=== PATIENT | female | born 1980 | race Caucasian/White ===

== ENCOUNTER 2018-07-20 16:19 | Emergency (ER) | payer OTHER ==
[~2018-07-20] VITALS: Ht 167.6 cm; Wt 101.3 kg
[2018-07-20 16:22] VITALS: BP 137/84
[2018-07-20] MEDS ORDERED: NACL 0.9% 1,000 ML IV ONE (16:48)
[2018-07-20] MEDS ORDERED: NACL 0.9% 1,000 ML IV SCH (16:48)
[2018-07-20] MEDS ORDERED: MORPHINE SULFATE 2 MG/ML SYR IVP ONE (16:50)
[2018-07-20] MEDS ORDERED: ONDANSETRON 4 MG/2 ML VIAL IVP ONE (16:50)
[2018-07-20] MEDS ORDERED: KETOROLAC 30 MG/ML VIAL IVP ONE (16:50)
[2018-07-20 17:47] LABS: BASOPHILS % (AUTO) 0.3 % (0.0-2.0); EOSINOPHILS # (AUTO) 0.2 K/uL (0-0.4); EOSINOPHILS % (AUTO) 1.4 % (0.0-4.0); HEMATOCRIT 32.4 % (36-48); HEMOGLOBIN 10.2 g/dL (12.0-16.0); LYMPHOCYTES # (AUTO) 1.8 K/uL (2.5-16.5); MEAN CORPUSCULAR HEMOGLOBIN 24 pg (27-31); MEAN CORPUSCULAR HGB CONC 32 g/dL (33-37); MEAN CORPUSCULAR VOLUME 76.5 fL (80-94); MONOCYTES # (AUTO) 0.9 K/uL (0.8-1.0); MONOCYTES % (AUTO) 7.8 % (1.7-9.3); NEUTROPHILS % (AUTO) 75.5 % (42.2-75.2); PLATELET COUNT (AUTO) 284 K/uL (140-450); RED BLOOD CELL COUNT(AUTO) 4.24 MIL/uL (4.20-5.40); RED CELL DISTRIBUTION WIDTH 16.2 % (11.6-13.7); WHITE BLOOD COUNT (AUTO) 11.9 K/uL (4.8-10.8)
[2018-07-20 17:47] LABS: APPEARANCE,URINE CLEAR (CLEAR); BILIRUBIN,URINE 1+ (NEGATIVE); BLOOD, URINE 2+ (NEGATIVE); COLOR,URINE ORANGE (YELLOW); LEUKOCYTE ESTERASE ,URINE NEGATIVE (NEGATIVE); NITRITE, URINE NEGATIVE (NEGATIVE); PH,URINE 5.5 (5.0-9.0); UGLUCOSE NEGATIVE (NEGATIVE)
[2018-07-20 17:55] LABS: RBC,URINE 3-10 (FEW) /HPF (0-5); WBC,URINE 0-5 (RARE) /HPF (0-5)
[2018-07-20 18:00] LABS: CARBON DIOXIDE 26.3 mmol/L (21-32); CREATININE 0.7 mg/dL (0.6-1.3); POTASSIUM 3.3 mmol/L (3.5-5.1)
[2018-07-20 18:06] LABS: ALBUMIN 2.7 g/dL (3.4-5.0); TOTAL BILIRUBIN 0.6 mg/dL (0.0-1.0)
[2018-07-20] MEDS ORDERED: LEVOFLOXACIN 500 MG TAB PO ONE (18:30)
[2018-07-20] MEDS ORDERED: cefTRIAXone 1,000 MG VIAL ONE (18:40)
[2018-07-20 19:15] VITALS: BP 109/59
== END 2018-07-20 19:15 | disposition home or self-care (01) ==
LOC: MED 16:19
DX: R10.2 Pelvic and perineal pain (principal); R19.7 Diarrhea, unspecified; R11.0 Nausea; Z90.49 Acquired absence of other specified parts of digestive tract
CPT/HCPCS: 36415; 74176; 76705; 80053; 81001; 81025; 82150; 83690; 84703; 85025; 96361; 96365; 96375; 99285; J0696; J1885; J2270; J2405; J7030; J7060; Q0092

== ENCOUNTER 2018-12-04 11:22 | Emergency (ER) | payer OTHER ==
[~2018-12-04] VITALS: Ht 167.6 cm; Wt 90.7 kg
--- NOTE | 2018-12-04 11:24 | NUR ---
PATIENT AMBULATED TO BED 7 AT THIS TIME.
[2018-12-04 11:29] VITALS: BP 152/80
--- NOTE | 2018-12-04 11:30 | NUR ---
38/F BIB DTR WITH C/O CHEST PAIN, INTERMITTENT PAIN SINCE SATURDAY, TIGHTNESS/PRESSURE ON MID CHEST AREA.PMH:NONE.RX: NONE. DIARRHEAX1 EPISODE TODAY. DENIES N/V; SKIN IS PINK/WARM/DRY; AAOX4 WITH EVEN AND STEADY GAIT; LUNGS CLEAR BL; HR EVEN AND REGULAR; PT DENIES ANY FEVER, CP, SOB, OR COUGH AT THIS TIME; PATIENT STATES PAIN OF 6/10 AT THIS TIME. PATIENT POSITIONED FOR COMFORT; HOB ELEVATED; BEDRAILS UP X2; BED DOWN. ER MD MADE AWARE OF PT STATUS.
--- NOTE | 2018-12-04 11:32 | NUR ---
EKG PERFORMED AT BEDSIDE WITH FAMILY MEMBER PRESENT. PT COVERED IN GOWN DURING PROCEDURE
[2018-12-04 12:58] LABS: BASOPHILS % (AUTO) 0.4 % (0.0-2.0); EOSINOPHILS # (AUTO) 0.2 K/uL (0-0.4); EOSINOPHILS % (AUTO) 2.7 % (0.0-4.0); HEMATOCRIT 35.2 % (36-48); HEMOGLOBIN 10.9 g/dL (12.0-16.0); LYMPHOCYTES # (AUTO) 2.5 K/uL (2.5-16.5); LYMPHOCYTES % (AUTO) 31.7 % (20.5-51.1); MEAN CORPUSCULAR HEMOGLOBIN 22 pg (27-31); MEAN CORPUSCULAR HGB CONC 31 g/dL (33-37); MEAN CORPUSCULAR VOLUME 70.2 fL (80-94); MONOCYTES # (AUTO) 0.6 K/uL (0.8-1.0); MONOCYTES % (AUTO) 7.7 % (1.7-9.3); NEUTROPHILS # (AUTO) 4.5 K/uL (1.8-7.7); NEUTROPHILS % (AUTO) 57.5 % (42.2-75.2); PLATELET COUNT (AUTO) 277 K/uL (140-450); RED BLOOD CELL COUNT(AUTO) 5.01 MIL/uL (4.20-5.40); RED CELL DISTRIBUTION WIDTH 17.1 % (11.6-13.7); WHITE BLOOD COUNT (AUTO) 7.8 K/uL (4.8-10.8)
[2018-12-04 13:10] LABS: ALBUMIN 3.3 g/dL (3.4-5.0); ANION GAP 13.5 (8-16); CARBON DIOXIDE 28.3 mmol/L (21-32); CREATININE 0.8 mg/dL (0.6-1.3); POTASSIUM 3.8 mmol/L (3.5-5.1); TOTAL BILIRUBIN 0.3 mg/dL (0.0-1.0)
--- NOTE | 2018-12-04 13:21 | NUR ---
PT TAKEN TO CT VIA W/C, ACCOMPANIED BY [employer] SUPERVISOR.
--- NOTE | 2018-12-04 13:33 | NUR ---
pt returned from ct.
[2018-12-04 14:37] VITALS: BP 127/80
--- NOTE | 2018-12-04 14:37 | NUR ---
Patient discharged with v/s stable. Written and verbal after care instructions given and explained. Patient alert, oriented and verbalized understanding of instructions. Ambulatory with steady gait. All questions addressed prior to discharge. ID band removed. Patient advised to follow up with PMD. Rx of NORCO &ASPIRIN given. Patient educated on indication of medication including possible reaction and side effects. Opportunity to ask questions provided and answered.
== END 2018-12-04 14:37 | disposition home or self-care (01) ==
LOC: MED 11:22
DX: R07.1 Chest pain on breathing (principal)
CPT/HCPCS: 36415; 71275; 80053; 81025; 84484; 84702; 85025; 93005; 99284; Q9967

== ENCOUNTER 2021-08-13 10:42 | Emergency (ER) | payer OTHER ==
[~2021-08-13] VITALS: Ht 162.6 cm; Wt 104.8 kg
[2021-08-13 10:47] VITALS: BP 144/97
--- NOTE | 2021-08-13 10:55 | NUR ---
Patient ambulated to [facility]
[2021-08-13] MEDS ORDERED: DICYCLOMINE HCL LIQUID 20 MG, ALUMINUM HYD/MAG/SIMETHICONE 30 ML, LIDOCAINE VISCOUS 2% ... PO ONE ×3 (11:30)
[2021-08-13] MEDS ORDERED: FAMOTIDINE 20 MG TAB PO ONE (11:30)
[2021-08-13] MEDS ORDERED: DICYCLOMINE HCL LIQUID 10 MG/5 ML UDC ONE (11:39)
[2021-08-13] MEDS ORDERED: ALUMINUM HYD/MAG/SIMETHICONE 30 ML UDC ONE (11:39)
[2021-08-13 11:51] LABS: BASOPHILS # (AUTO) 0.1 K/uL (0.00-0.22); BASOPHILS % (AUTO) 0.9 % (0.0-2.0); EOSINOPHILS # (AUTO) 0.3 K/uL (0-0.4); EOSINOPHILS % (AUTO) 3.5 % (0.0-4.0); HEMATOCRIT 42.9 % (36-48); HEMOGLOBIN 14.2 g/dL (12.0-16.0); LYMPHOCYTES # (AUTO) 2.6 K/uL (2.5-16.5); LYMPHOCYTES % (AUTO) 27.6 % (20.5-51.1); MEAN CORPUSCULAR HEMOGLOBIN 28 pg (27-31); MEAN CORPUSCULAR HGB CONC 33 g/dL (33-37); MEAN CORPUSCULAR VOLUME 83.5 fL (80-94); MONOCYTES # (AUTO) 0.8 K/uL (0.8-1.0); MONOCYTES % (AUTO) 8.3 % (1.7-9.3); NEUTROPHILS # (AUTO) 5.6 K/uL (1.8-7.7); NEUTROPHILS % (AUTO) 59.7 % (42.2-75.2); PLATELET COUNT (AUTO) 331 K/uL (140-450); RED BLOOD CELL COUNT(AUTO) 5.14 MIL/uL (4.20-5.40); RED CELL DISTRIBUTION WIDTH 14.4 % (11.6-13.7); WHITE BLOOD COUNT (AUTO) 9.5 K/uL (4.8-10.8)
[2021-08-13 12:02] LABS: ALBUMIN 3.4 g/dL (3.4-5.0); ANION GAP 9.8 (8-16); CARBON DIOXIDE 30.2 mmol/L (21-32); CREATININE 0.6 mg/dL (0.6-1.3); TOTAL BILIRUBIN 0.4 mg/dL (0.0-1.0)
--- NOTE | 2021-08-13 12:12 | NUR ---
41 y/o F BIB self from home c/o epigastric pain x 1 day. Patient states 8/10, "painful/constant," radiating to low back. Denies nausea, vomiting, diarrhea, constipation, fever, chills, dysuria, urinary symptoms, chest pain, SOB. Denies any medications prior to arrival. Reports last gastritis flare up 1 year ago PMH: gastritis Meds: pantoprazole NKA Sx: cholecystectomy
[2021-08-13] MEDS ORDERED: FAMO-90 PO (13:31)
[2021-08-13 13:40] VITALS: BP 144/97
--- NOTE | 2021-08-13 13:40 | NUR ---
Patient discharged with v/s stable. Written and verbal after care instructions given and explained. Patient alert, oriented and verbalized understanding of instructions. Ambulatory with steady gait. All questions addressed prior to discharge. ID band removed. Patient advised to follow up with PMD. Rx of FAMOTIDINE (SENT) given. Patient educated on indication of medication including possible reaction and side effects. Opportunity to ask questions provided and answered.
== END 2021-08-13 13:40 | disposition home or self-care (01) ==
LOC: MED 10:42
DX: K29.70 Gastritis, unspecified, without bleeding (principal)
CPT/HCPCS: 36415; 80053; 81002; 81025; 83690; 85025; 99283

== ENCOUNTER 2021-10-28 11:10 | Emergency (ER) | payer OTHER, SELFPAY ==
[~2021-10-28] VITALS: Ht 167.6 cm; Wt 99.8 kg
[~2021-10-28 11:10] MED LIST: FAMO-90 PO
[2021-10-28 11:28] VITALS: BP 154/88
--- NOTE | 2021-10-28 11:39 | NUR ---
TENT 3
[2021-10-28] MEDS ORDERED: IBUP-2213 PO (12:45)
[2021-10-28] MEDS ORDERED: BENZ1LOZ98 PO (12:45)
[2021-10-28] MEDS ORDERED: TAM75 PO (12:45)
[2021-10-28] MEDS ORDERED: PROM118S5 PO (12:45)
--- NOTE | 2021-10-28 13:17 | NUR ---
NO NUSNG CARE GIVEN-Patient discharged with v/s stable. Written and verbal after care instructions given and explained. Patient alert, oriented and verbalized understanding of instructions. Ambulatory with steady gait. All questions addressed prior to discharge. ID band removed. Patient advised to follow up with PMD. Rx of CEPACOL SORE, PROMETHAZINE, TAMIFLU given. Patient educated on indication of medication including possible reaction and side effects. Opportunity to ask questions provided and answered.
== END 2021-10-28 13:19 | disposition home or self-care (01) ==
LOC: MED 11:10
DX: B34.9 Viral infection, unspecified (principal); Z20.822 Contact with and (suspected) exposure to COVID-19
CPT/HCPCS: 99283; U0003

== ENCOUNTER 2022-12-04 20:02 | Emergency (ER) | payer OTHER ==
[~2022-12-04] VITALS: Ht 167.6 cm; Wt 117.9 kg
[~2022-12-04 20:02] MED LIST changes: +BENZ-300 PO; +IBUP-2213 PO; +PROM118S5 PO; +TAM75 PO
[2022-12-04 20:10] VITALS: BP 161/89
--- NOTE | 2022-12-04 20:30 | NUR ---
DR. MAN AT BEDSIDE
--- NOTE | 2022-12-04 20:30 | NUR ---
PT COMPLAINING OF CP, DYSPNEA, AND NUMBNESS/SWELLING OF EXTREMETIES X 2 WEEKS CONSTANT. DYSPNEA WORSENS WHEN PT IS LAYING FLAT. PT ALSO ADMITS TO BEING MORE FATIGUE LAST 2 WEEKS. HAD LAB WORKS DONE RECENTLY AND PCP STATED PT HAD HIGH CHOLESTEROL. DENIES ANY OTHER PMH. DENIES RECENT STRESSFULL EVENTS. SPEECH CLEAR. GEODESIST EQUAL BILATERAL. FACIAL SYMETRY INTACT. AOX4. SKIN WDL. NAD NOTED AT THIS TIME. CONNECTED PT TO MONITOR. BED LOW IN LOCKED POSITION. SIDE RAILS UP.
--- NOTE | 2022-12-04 20:30 | NUR ---
PT TO BED 4
[2022-12-04] MEDS ORDERED: FAMOTIDINE 20 MG TAB PO ONE (20:35)
[2022-12-04] MEDS ORDERED: IBUPROFEN 600 MG TAB PO ONE (20:35)
[2022-12-04] MEDS ORDERED: ALUMINUM HYD/MAG/SIMETHICONE 30 ML UDC PO ONE (20:35)
--- NOTE | 2022-12-04 20:50 | NUR ---
XRAY AT BEDSIDE
[2022-12-04 20:52] LABS: BASOPHILS % (AUTO) 0.4 % (0.0-2.0); EOSINOPHILS # (AUTO) 0.2 K/uL (0-0.4); EOSINOPHILS % (AUTO) 1.5 % (0.0-4.0); HEMATOCRIT 33.3 % (36-48); HEMOGLOBIN 10.6 g/dL (12.0-16.0); LYMPHOCYTES # (AUTO) 3.3 K/uL (2.5-16.5); MEAN CORPUSCULAR HEMOGLOBIN 24 pg (27-31); MEAN CORPUSCULAR HGB CONC 32 g/dL (33-37); MEAN CORPUSCULAR VOLUME 76.2 fL (80-94); MONOCYTES # (AUTO) 0.9 K/uL (0.8-1.0); MONOCYTES % (AUTO) 8.7 % (1.7-9.3); NEUTROPHILS # (AUTO) 6.5 K/uL (1.8-7.7); NEUTROPHILS % (AUTO) 59.4 % (42.2-75.2); PLATELET COUNT (AUTO) 280 K/uL (140-450); RED BLOOD CELL COUNT(AUTO) 4.37 MIL/uL (4.20-5.40); WHITE BLOOD COUNT (AUTO) 10.9 K/uL (4.8-10.8)
--- NOTE | 2022-12-04 20:59 | NUR ---
PT MEDICATED FOR PAIN PER EMAR
[2022-12-04 21:07] LABS: ALBUMIN 3.1 g/dL (3.4-5.0); ANION GAP 10.6 (8-16); CREATININE 0.7 mg/dL (0.6-1.3); POTASSIUM 3.6 mmol/L (3.5-5.1); TOTAL BILIRUBIN 0.1 mg/dL (0.0-1.0)
[2022-12-04 21:11] LABS: LIPASE 74 U/L (73-393)
--- NOTE | 2022-12-04 21:18 | NUR ---
DR. MAN AT BEDSIDE
[2022-12-04] MEDS ORDERED: FAMO-90 PO (21:19)
[2022-12-04] MEDS ORDERED: ALUM355S59 PO (21:19)
[2022-12-04] MEDS ORDERED: ACET-10509 PO (21:19)
--- NOTE | 2022-12-04 21:26 | NUR ---
Patient discharged with v/s stable. Written and verbal after care instructions given and explained. Patient verbalized understanding. Ambulatory with steady gait. All questions addressed prior to discharge. Advised to follow up with PMD.
[2022-12-04 21:27] VITALS: BP 146/73
== END 2022-12-04 21:27 | disposition home or self-care (01) ==
LOC: MED 20:02
DX: R07.9 Chest pain, unspecified (principal); K21.9 Gastro-esophageal reflux disease without esophagitis
CPT/HCPCS: 36415; 71045; 80053; 83690; 83880; 84484; 85025; 99285; Q0092

== ENCOUNTER 2023-05-23 10:25 | Inpatient (IN) | payer OTHER ==
[~2023-05-23] VITALS: Ht 170.2 cm; Wt 121.6 kg
[~2023-05-23 10:25] MED LIST changes: +ACET-10509 PO; +ALUM355S59 PO
[2023-05-23 10:28] VITALS: PULSE 73; RESP 20; O2SAT 100
[2023-05-23 12:05] LABS: BASOPHILS # (AUTO) 0.1 K/uL (0.00-0.22); BASOPHILS % (AUTO) 0.7 % (0.0-2.0); EOSINOPHILS # (AUTO) 0.2 K/uL (0-0.4); EOSINOPHILS % (AUTO) 2.1 % (0.0-4.0); HEMOGLOBIN 12.2 g/dL (12.0-16.0); LYMPHOCYTES % (AUTO) 28.2 % (20.5-51.1); MEAN CORPUSCULAR HEMOGLOBIN 25 pg (27-31); MEAN CORPUSCULAR HGB CONC 32 g/dL (33-37); MEAN CORPUSCULAR VOLUME 76.5 fL (80-94); MONOCYTES # (AUTO) 0.7 K/uL (0.8-1.0); MONOCYTES % (AUTO) 6.5 % (1.7-9.3); NEUTROPHILS # (AUTO) 6.7 K/uL (1.8-7.7); NEUTROPHILS % (AUTO) 62.5 % (42.2-75.2); PLATELET COUNT (AUTO) 285 K/uL (140-450); RED BLOOD CELL COUNT(AUTO) 4.97 MIL/uL (4.20-5.40); RED CELL DISTRIBUTION WIDTH 20.6 % (11.6-13.7); WHITE BLOOD COUNT (AUTO) 10.7 K/uL (4.8-10.8)
[2023-05-23 12:19] LABS: ALBUMIN 3.3 g/dL (3.4-5.0); ANION GAP 12.7 (8-16); CARBON DIOXIDE 22.9 mmol/L (21-32); CREATININE 0.8 mg/dL (0.6-1.3); POTASSIUM 3.6 mmol/L (3.5-5.1); TOTAL BILIRUBIN 0.3 mg/dL (0.0-1.0); TOTAL PROTEIN, SERUM 7.4 g/dL (6.4-8.2)
[2023-05-23 13:50] LABS: APPEARANCE,URINE CLEAR (CLEAR); BILIRUBIN,URINE NEGATIVE (NEGATIVE); BLOOD, URINE NEGATIVE (NEGATIVE); COLOR,URINE YELLOW (YELLOW); LEUKOCYTE ESTERASE ,URINE NEGATIVE (NEGATIVE); NITRITE, URINE NEGATIVE (NEGATIVE); PH,URINE 5.5 (5.0-9.0); PROTEIN,URINE NEGATIVE (NEGATIVE); UGLUCOSE NEGATIVE (NEGATIVE); UROBILINOGEN,URINE 0.2 EU/dL (0.2 - 1)
[2023-05-23] MEDS ORDERED: ONDANSETRON 4 MG/2 ML VIAL IVP ONE (14:10)
[2023-05-23] MEDS ORDERED: NACL 0.9% 1,000 ML IV ONE (14:10)
[2023-05-23] MEDS ORDERED: MORPHINE SULFATE 4 MG/ML SYR IVP ONE (14:10)
[2023-05-23] MEDS ORDERED: PIPERACILLIN/TAZOBACTAM 3.375 GM in DEXTROSE 5% 50 ML IV ONE (15:00)
[2023-05-23] MEDS ORDERED: PIPERACILLIN/TAZOBACTAM 3.375 GM VIAL IV ONE (15:51)
[2023-05-23] MEDS ORDERED: POTASSIUM CHLORIDE 10 MEQ TABER PO PRN (15:55)
[2023-05-23] MEDS ORDERED: KCL 20 MEQ IN 100 mL PREMIX 200 ML IV PRN (15:55)
[2023-05-23] MEDS ORDERED: HYDROcodone/APAP 5/325 MG 1 TAB TAB PO PRN (15:55)
[2023-05-23] MEDS ORDERED: MAGNESIUM OXIDE 400 MG TAB PO PRN (15:55)
[2023-05-23] MEDS ORDERED: MAG SULF 2000 MG/WATER PREMIX 50 ML IV PRN (15:55)
[2023-05-23] MEDS ORDERED: ACETAMINOPHEN 325 MG TAB PO PRN (15:55)
[2023-05-23 16:55] VITALS: BP 112/54; PULSE 70; RESP 18; TEMP 96.2; O2SAT 97
[2023-05-23] MEDS: NACL 0.9% 1,000 ML IV SCH (17:18)
[2023-05-23 17:30] VITALS: PULSE 70; RESP 18; O2SAT 97
[2023-05-23] MEDS: MORPHINE SULFATE 2 MG/ML SYR IVP PRN (17:38)
[2023-05-23] MEDS ORDERED: BUPIVACAINE-MPF/EPI 0.25% 10 ML VIAL INJ ONE (18:43)
[2023-05-23] MEDS ORDERED: DESFLURANE 240 ML BTL INH ONE (19:39)
[2023-05-23] MEDS ORDERED: fentaNYL citrate 0.05 MG/ML VIAL ONE (19:51)
[2023-05-23] MEDS ORDERED: ROCURONIUM 50 MG/5 ML VIAL IV ONE (19:54)
[2023-05-23] MEDS ORDERED: SUCCINYLCHOLINE CHLORIDE 200 MG/10 ML VIAL IVP ONE (19:54)
[2023-05-23] MEDS ORDERED: KETOROLAC 30 MG/ML VIAL ONE (19:54)
[2023-05-23] MEDS ORDERED: PROPOFOL 200 MG/20 ML VIAL IV ONE (19:54)
[2023-05-23] MEDS ORDERED: ONDANSETRON 4 MG/2 ML VIAL ONE (19:55)
[2023-05-23] MEDS ORDERED: DEXAMETHASONE 4 MG/ML VIAL ONE (19:55)
[2023-05-23] MEDS: LIRAGLUTIDE 1.8 MG SUBQ SCH (20:00)
[2023-05-23] MEDS ORDERED: HYDROmorphone PFS 2 MG/ML SYR ONE ×2 (20:17→20:56)
[2023-05-23] MEDS ORDERED: SUGAMMADEX SODIUM 200 MG/2 ML VIAL IV ONE (20:34)
[2023-05-23] MEDS ORDERED: MORPHINE SULFATE 4 MG/ML SYR IV PRN (20:45)
[2023-05-23] MEDS ORDERED: MORPHINE SULFATE 2 MG/ML SYR IVP PRN (20:45)
[2023-05-23] MEDS: HYDROmorphone 1 MG/ML AMP IVP PRN ×4 (20:50→21:20)
[2023-05-23] MEDS ORDERED: ONDANSETRON 4 MG/2 ML VIAL IVP PRN (20:50)
[2023-05-23] MEDS ORDERED: metroNIDAZOLE 500 MG/NS PREMIX 100 ML IV SCH (21:00)
[2023-05-23 21:28] VITALS: PULSE 70; RESP 18; O2SAT 96
[2023-05-23] MEDS ORDERED: cefTRIAXone 1,000 MG VIAL ONE (22:34)
[2023-05-24] MEDS ORDERED: metroNIDAZOLE 500 MG/NS PREMIX 100 ML IV SCH
[2023-05-24] MEDS: metroNIDAZOLE 500 MG/NS PREMIX 100 ML IV SCH ×4 (00:04→23:05)
[2023-05-24] MEDS: NACL 0.9% 1,000 ML IV SCH ×3 (00:15→17:45)
[2023-05-24 00:55] VITALS: BP 102/52; PULSE 65; RESP 17; TEMP 97.4; O2SAT 96
[2023-05-24] MEDS: ONDANSETRON 4 MG/2 ML VIAL IVP PRN ×2 (03:23→08:45)
[2023-05-24] MEDS: MORPHINE SULFATE 2 MG/ML SYR IVP PRN (03:26)
[2023-05-24 06:31] LABS: BASOPHILS % (AUTO) 0.2 % (0.0-2.0); HEMATOCRIT 33.8 % (36-48); HEMOGLOBIN 10.7 g/dL (12.0-16.0); LYMPHOCYTES # (AUTO) 1.5 K/uL (2.5-16.5); MEAN CORPUSCULAR HEMOGLOBIN 25 pg (27-31); MEAN CORPUSCULAR HGB CONC 32 g/dL (33-37); MEAN CORPUSCULAR VOLUME 77.8 fL (80-94); MONOCYTES # (AUTO) 0.6 K/uL (0.8-1.0); MONOCYTES % (AUTO) 5.1 % (1.7-9.3); NEUTROPHILS # (AUTO) 10.1 K/uL (1.8-7.7); NEUTROPHILS % (AUTO) 82.7 % (42.2-75.2); PLATELET COUNT (AUTO) 259 K/uL (140-450); RED BLOOD CELL COUNT(AUTO) 4.34 MIL/uL (4.20-5.40); RED CELL DISTRIBUTION WIDTH 20.6 % (11.6-13.7); WHITE BLOOD COUNT (AUTO) 12.3 K/uL (4.8-10.8)
[2023-05-24 06:35] LABS: ALBUMIN 2.7 g/dL (3.4-5.0); ANION GAP 11.2 (8-16); CALCIUM 7.6 mg/dL (8.5-10.1); CARBON DIOXIDE 22.1 mmol/L (21-32); CREATININE 0.7 mg/dL (0.6-1.3); POTASSIUM 4.3 mmol/L (3.5-5.1); TOTAL BILIRUBIN 0.5 mg/dL (0.0-1.0); TOTAL PROTEIN, SERUM 6.5 g/dL (6.4-8.2)
[2023-05-24 07:55] VITALS: PULSE 70; RESP 20; O2SAT 99
[2023-05-24 08:00] VITALS: BP 153/83; PULSE 78; RESP 18; TEMP 97.3; O2SAT 96
[2023-05-24] MEDS: FAMOTIDINE 20 MG TAB PO SCH (08:44)
[2023-05-24] MEDS: HYDROmorphone 1 MG/ML AMP IVP PRN ×2 (08:47→15:09)
[2023-05-24] MEDS ORDERED: ACET-9525 PO (15:59)
[2023-05-24 16:00] VITALS: BP 155/73; PULSE 74; RESP 17; TEMP 98.8; O2SAT 96
[2023-05-24 17:09] VITALS: BP 125/85; PULSE 68; RESP 20; TEMP 97.1
[2023-05-24 20:00] VITALS: BP 101/61; PULSE 67; RESP 17; RESP 18; TEMP 98.8; O2SAT 98
[2023-05-24] MEDS: LIRAGLUTIDE 1.8 MG SUBQ SCH (22:38)
[2023-05-25] MEDS: NACL 0.9% 1,000 ML IV SCH ×3 (01:41→17:26)
[2023-05-25 04:00] VITALS: BP 115/57; PULSE 75; RESP 18; TEMP 96.9; O2SAT 99
[2023-05-25] MEDS: MORPHINE SULFATE 2 MG/ML SYR IVP PRN (04:06)
[2023-05-25] MEDS: ONDANSETRON 4 MG/2 ML VIAL IVP PRN (04:07)
[2023-05-25 05:35] LABS: BASOPHILS % (AUTO) 0.4 % (0.0-2.0); EOSINOPHILS # (AUTO) 0.3 K/uL (0-0.4); EOSINOPHILS % (AUTO) 2.4 % (0.0-4.0); HEMATOCRIT 31.8 % (36-48); HEMOGLOBIN 10.2 g/dL (12.0-16.0); LYMPHOCYTES # (AUTO) 2.2 K/uL (2.5-16.5); LYMPHOCYTES % (AUTO) 21.3 % (20.5-51.1); MEAN CORPUSCULAR HEMOGLOBIN 25 pg (27-31); MEAN CORPUSCULAR HGB CONC 32 g/dL (33-37); MEAN CORPUSCULAR VOLUME 77.3 fL (80-94); MONOCYTES # (AUTO) 0.8 K/uL (0.8-1.0); NEUTROPHILS # (AUTO) 7.2 K/uL (1.8-7.7); NEUTROPHILS % (AUTO) 67.9 % (42.2-75.2); PLATELET COUNT (AUTO) 218 K/uL (140-450); RED BLOOD CELL COUNT(AUTO) 4.12 MIL/uL (4.20-5.40); RED CELL DISTRIBUTION WIDTH 20.7 % (11.6-13.7); WHITE BLOOD COUNT (AUTO) 10.5 K/uL (4.8-10.8)
[2023-05-25 07:44] LABS: ALBUMIN 2.5 g/dL (3.4-5.0); ANION GAP 13.3 (8-16); CALCIUM 7.2 mg/dL (8.5-10.1); CREATININE 0.7 mg/dL (0.6-1.3); MAGNESIUM 1.8 mg/dL (1.8-2.4); POTASSIUM 3.3 mmol/L (3.5-5.1); TOTAL BILIRUBIN 0.5 mg/dL (0.0-1.0); TOTAL PROTEIN, SERUM 6.1 g/dL (6.4-8.2)
[2023-05-25 08:00] VITALS: BP 111/65; PULSE 72; RESP 20; TEMP 97.3; O2SAT 100
[2023-05-25 08:05] VITALS: PULSE 68; RESP 20; O2SAT 99
[2023-05-25] MEDS: FAMOTIDINE 20 MG TAB PO SCH (08:52)
[2023-05-25] MEDS: metroNIDAZOLE 500 MG/NS PREMIX 100 ML IV SCH ×2 (08:52→17:26)
[2023-05-25] MEDS ORDERED: KCL 20 MEQ IN 100 mL PREMIX 200 ML IV SCH (10:00)
[2023-05-25] MEDS: HYDROmorphone 1 MG/ML AMP IVP PRN ×2 (11:25→20:09)
[2023-05-25 16:00] VITALS: BP 115/60; PULSE 76; RESP 20; TEMP 97.7; O2SAT 100
[2023-05-25 20:00] VITALS: BP 137/88; PULSE 90; RESP 18; TEMP 97.8; O2SAT 99
== END 2023-05-25 21:30 | disposition home or self-care (01) | DRG 234 ==
LOC: MED 10:25 → MMU 16:01 → MTU 16:28
PROVIDERS: ADMIT Internal Medicine; ATTEND Internal Medicine
PROC: 0DTJ4ZZ Resection of Appendix, Percutaneous Endoscopic Approach (ICD-10-PCS; principal; 2023-05-23 17:30)
DX: K35.80 Unspecified acute appendicitis (principal); R65.10 Systemic inflammatory response syndrome (SIRS) of non-infectious origin without acute organ dysfunction; E44.1 Mild protein-calorie malnutrition; R71.0 Precipitous drop in hematocrit; Z68.41 Body mass index [BMI] 40.0-44.9, adult; E66.01 Morbid (severe) obesity due to excess calories; K21.9 Gastro-esophageal reflux disease without esophagitis; Z90.49 Acquired absence of other specified parts of digestive tract; Z79.899 Other long term (current) drug therapy
CPT/HCPCS: 36415; 80053; 81003; 82374; 83605; 83690; 83735; 85025; 87040; 87081; 88304; 96374; 96375; 99285; J0330; J0696; J1100; J1170; J1885; J2270; J2405; J2543; J2704; J3010; J3480; J3490; J7030; J7060; J7120; Q9967

== ENCOUNTER 2023-06-17 16:09 | Emergency (ER) | payer OTHER ==
[~2023-06-17] VITALS: Ht 167.6 cm; Wt 115.7 kg
[~2023-06-17 16:09] MED LIST changes: +ACET-9525 PO
[2023-06-17 16:28] VITALS: BP 120/77; PULSE 98; RESP 18; TEMP 97.6; O2SAT 98
[2023-06-17 17:27] LABS: APPEARANCE,URINE CLEAR (CLEAR); BILIRUBIN,URINE NEGATIVE (NEGATIVE); BLOOD, URINE NEGATIVE (NEGATIVE); COLOR,URINE YELLOW (YELLOW); LEUKOCYTE ESTERASE ,URINE NEGATIVE (NEGATIVE); NITRITE, URINE NEGATIVE (NEGATIVE); PH,URINE 5.5 (5.0-9.0); PROTEIN,URINE NEGATIVE (NEGATIVE); UGLUCOSE NEGATIVE (NEGATIVE); UROBILINOGEN,URINE 0.2 EU/dL (0.2 - 1)
[2023-06-17 17:35] LABS: BASOPHILS % (AUTO) 0.4 % (0.0-2.0); EOSINOPHILS # (AUTO) 0.3 K/uL (0-0.4); EOSINOPHILS % (AUTO) 2.9 % (0.0-4.0); HEMATOCRIT 38.9 % (36-48); HEMOGLOBIN 12.3 g/dL (12.0-16.0); LYMPHOCYTES % (AUTO) 26.8 % (20.5-51.1); MEAN CORPUSCULAR HEMOGLOBIN 25 pg (27-31); MEAN CORPUSCULAR HGB CONC 32 g/dL (33-37); MONOCYTES # (AUTO) 0.8 K/uL (0.8-1.0); MONOCYTES % (AUTO) 7.3 % (1.7-9.3); NEUTROPHILS # (AUTO) 7.1 K/uL (1.8-7.7); NEUTROPHILS % (AUTO) 62.6 % (42.2-75.2); PLATELET COUNT (AUTO) 369 K/uL (140-450); RED BLOOD CELL COUNT(AUTO) 4.92 MIL/uL (4.20-5.40); WHITE BLOOD COUNT (AUTO) 11.3 K/uL (4.8-10.8)
[2023-06-17] MEDS ORDERED: NACL 0.9% 1,000 ML IV ONE (17:35)
[2023-06-17] MEDS ORDERED: ONDANSETRON 4 MG/2 ML VIAL IVP ONE (17:35)
[2023-06-17] MEDS ORDERED: MORPHINE SULFATE 4 MG/ML SYR IVP ONE (17:35)
[2023-06-17 17:50] VITALS: O2SAT 95
[2023-06-17 17:50] LABS: INR 0.95 (0.8-1.2)
[2023-06-17 18:00] LABS: ALBUMIN 3.4 g/dL (3.4-5.0); ANION GAP 10.3 (8-16); CALCIUM 8.1 mg/dL (8.5-10.1); CARBON DIOXIDE 25.1 mmol/L (21-32); CREATININE 0.8 mg/dL (0.6-1.3); POTASSIUM 3.4 mmol/L (3.5-5.1); TOTAL BILIRUBIN 0.3 mg/dL (0.0-1.0); TOTAL PROTEIN, SERUM 7.5 g/dL (6.4-8.2)
[2023-06-17 18:03] LABS: LACTIC ACID 0.9 mmol/L (0.4-2.0)
[2023-06-17] MEDS ORDERED: PIPERACILLIN/TAZOBACTAM 3.375 GM in DEXTROSE 5% 50 ML IV ONE (18:30)
[2023-06-17] MEDS ORDERED: VANCOMYCIN 1,000 MG in DEXTROSE 5% 250 ML IV ONE (18:30)
[2023-06-17] MEDS ORDERED: PIPERACILLIN/TAZOBACTAM 3.375 GM VIAL IV ONE (18:55)
[2023-06-17] MEDS ORDERED: AMOX1TAB8 PO (18:56)
[2023-06-17] MEDS ORDERED: VANCOMYCIN 1,000 MG VIAL ONE (19:28)
[2023-06-17] MEDS ORDERED: ONDA-188 PO (19:40)
[2023-06-17] MEDS ORDERED: ACET-8905 PO (19:40)
[2023-06-17 21:28] VITALS: BP 126/69; PULSE 86; RESP 18; TEMP 97.6; O2SAT 95
== END 2023-06-17 21:28 | disposition home or self-care (01) ==
LOC: MED 16:09
DX: G89.18 Other acute postprocedural pain (principal); R10.31 Right lower quadrant pain; E87.6 Hypokalemia; R50.9 Fever, unspecified; K21.9 Gastro-esophageal reflux disease without esophagitis; Z90.49 Acquired absence of other specified parts of digestive tract; Z79.899 Other long term (current) drug therapy
CPT/HCPCS: 36415; 74177; 80053; 81003; 81025; 83605; 83690; 85025; 85610; 85730; 87040; 96361; 96365; 96366; 96368; 96375; 99285; J2270; J2405; J2543; J3370; J7030; Q9967